=== PATIENT | male | born 1965 | race Caucasian/White ===

== ENCOUNTER 2025-04-06 14:18 | Emergency (ER) | payer OTHER, SELFPAY ==
[2025-04-06 14:20] VITALS: BP 117/84
[2025-04-06] MEDS: TORADOL 15 MG IV (16:32)
[2025-04-06] MEDS: NSS 1000 IV (16:33)
[2025-04-06 16:45] VITALS: BP 122/74
[2025-04-06 16:54] LABS: % Basophils 0.5 % (0-2); % Eosinophils 1.3 % (0-6); % Immature Granulocytes 0.4 % (0-0.5); % Lymphocytes 21.8 % (20.5-51.1); % Monocytes 12.9 % (1.7-9.3); % Neutrophils 63.1 % (42.2-75.2); Absolute Eosinophils 0.1 10^3/uL (0-0.7); Absolute Lymphocytes 1.2 10^3/uL (1.2-3.4); Absolute Monocytes 0.7 10^3/uL (0.1-0.6); Absolute Neutrophils 3.5 10^3/uL (1.4-6.5); Hematocrit 39.6 % (39.0-52.0); Hemoglobin 13.8 g/dL (13.0-18.0); Mean Corp Hgb Conc. 34.8 g/dL (33.0-37.0); Mean Corpuscular Hgb 30.1 pg (27.0-31.0); Mean Corpuscular Volume 86.3 fL (80.0-94.0); Mean Platelet Volume 8.8 fL (7.4-10.4); Nucleated Red Blood Cells % 0 % (-); Platelet Count 207 10^3/uL (130-400); Red Blood Cell Count 4.59 10^6/uL (4.70-6.10); Red Cell Dist. Width 12.4 % (11.5-14.5); White Blood Cell Count 5.5 10^3/uL (4.8-10.8)
[2025-04-06 17:03] LABS: Urine Albumin 1+ (Neg - Trace); Urine Bilirubin Negative (Negative); Urine Character Clear (Clear); Urine Color Yellow; Urine Glucose Negative (Negative); Urine Ketone Negative (Negative); Urine Leukocyte Negative (Negative); Urine Nitrite Positive (Negative); Urine Occult Blood Negative (Negative); Urine Specific Gravity 1.025 (<1.030); Urine Urobilinogen 1+ (Neg - 1+)
[2025-04-06 17:03] LABS: Lactic Acid 0.9 mmol/L (0.7-2.0)
[2025-04-06 17:04] LABS: ALT (SGPT) 28 U/L (0-50); AST (SGOT) 29 U/L (17-59); Albumin 4.5 g/dl (3.5-5.0); Alkaline Phosphatase 43 U/L (38-126); Blood Urea Nitrogen 27 mg/dl (9-20); Calcium 9.6 mg/dl (8.4-10.2); Carbon Dioxide 25 mmol/L (22-30); Chloride 105 mmol/L (98-107); Glucose 103 mg/dl (70-99); Potassium 4.3 mmol/L (3.5-5.1); Sodium 137 mmol/L (135-145); Total Bilirubin 0.7 mg/dl (0.2-1.3); Total Protein 7.3 g/dl (6.3-8.2); eGFR > 60.00
[2025-04-06 17:12] LABS: Urine Bacteria Many (Negative); Urine Hyaline Cast >15 /LPF (0-2); Urine Red Blood Cell 0-2 /HPF (0-2); Urine Squamous Cell 0-2 /LPF (Few); Urine White Cell 0-2 /HPF (0-5)
[2025-04-06 19:13] VITALS: BP 120/72
--- NOTE | 2025-04-06 19:15 | ED.GENMED ---
History of Present Illness
General
Chief Complaint: Abdominal Pain
Source: patient
Exam Limitations: none
Time Seen by Provider: 04/06/25 15:07
Nursing documentation reviewed up to this point in time: agreed with
History of Present Illness
History of Present Illness:
The patient is a 59-year-old male presenting with lower abdominal pain and urinary symptoms that began on Wednesday. 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
urine stream and incomplete bladder emptying. The following morning, he reported this to his spouse and continued to experience symptoms while at work. He visited an urgent care clinic where a pelvic examination caused significant tenderness. He was
prescribed ciprofloxacin 500 mg, but after three doses, there was no improvement in symptoms. Notably, the urine culture performed was negative. Additionally, the patient mentioned taking an [id number] medication, phenazopyridine, for urinary
discomfort, which resulted in discolored urine.
Past History
Past History
ED Past Medical History: Hypercholesterolemia
ED Past Surgical History: None
Social History
Tobacco: Non-smoker
Alcohol: None
Personal:
Living: with family
Review of Systems
Review of Systems
Allergies reviewed?: Yes
All Other Systems: ROS reviewed and negative except as documented in HPI and ROS
Phy Exam
Physical Exam
Physical Exam:
GENERAL: Alert , in no apparent distress
EYE: pupils equal and reactive
NECK: Supple, no significant adenopathy.
ENT: o/p clr, mmm.
CARDIAC: Regular rate and rhythm .
LUNGS: Clear breath sounds bilaterally, no acute respiratory distress, no wheezes/rales/rhonchi
ABDOMEN: Vague discomfort to the lower abdomen maximum to the left lower quadrant.
NEUROLOGICAL: Alert and oriented, no focal neuro deficits
SKIN: Warm and dry, skin intact.
MUSCULOSKELETAL: No edema, well perfused.
PSYCH: Normal and appropriate interaction.
Course
Orders/Labs/Results
Orders:
Orders
04/06/25 16:24
CT Abd/Pel (IV only)-DH only Urgent
Comment:
Reason For Exam: lower abd pain
0.9% Sodium Chloride 1000 ml [Nss] 1,000 ml IV BOLUS
Ketorolac [Toradol] 15 mg IV NOW STA
04/06/25 16:33
Complete Blood Count/With Diff Urgent
Comprehensive Metabolic Panel Urgent
Lactic Acid Urgent
04/06/25 16:34
Urinalysis Reflex To Culture Urgent
Date Specimen was Collected: 04/06/25
Time Specimen was Collected: 16:30
Urine Microscopic Reflex Cult Urgent
Urine Culture Urgent
LURDES Source: U
Specimen Description:
Date Specimen was Collected: 04/06/25
Time Specimen was Collected: 16:30
04/06/25 19:11
Amoxicillin 875 mg/Clav 125 mg [Augmentin 875 mg/125 mg] 1 tablet PO NOW STA
Abnormal Lab Results
04/06/25 04/06/25
16:33 16:34
RBC 4.59 L 10^6/uL
(4.70-6.10)
Absolute Monos (auto) 0.7 H 10^3/uL
(0.1-0.6)
Monocytes % 12.9 H %
(1.7-9.3)
BUN 27 H mg/dl
(9-20)
Glucose 103 H mg/dl
(70-99)
Urine Nitrite (Reflex) Positive A
(Negative)
Urine Bacteria (Reflex) Many A
(Negative)
Urine Albumin (Reflex) 1+ A
(Neg - Trace)
04/06/25 16:33
04/06/25 16:33
Vital Signs
Initial and Last Documented VS:
Initial Vital Signs
Temp Pulse Resp BP Pulse Ox
97.9 F 112 16 117/84 99
04/06/25 14:20 04/06/25 14:20 04/06/25 14:20 04/06/25 14:20 04/06/25 14:20
Last Documented Vital Signs
Temp Pulse Resp BP Pulse Ox
97.9 F 90 18 120/72 99
04/06/25 14:20 04/06/25 19:13 04/06/25 19:13 04/06/25 19:13 04/06/25 19:13
MDM/Problems Addressed
MDM/Problems Addressed:
59-year-old male presenting to the emergency department today with concerns of lower abdominal discomfort over the past few days. Diagnosed with potential UTI started on Cipro but his urinalysis did not show any infection on culture concerning the
persisting pain and reproducible pain to palpation CT scan was obtained diverticulitis. He was started on Augmentin and advised for dietary modification otherwise was advised for close follow-up with his urologist as well as GI doctor. Return
precautions given. Incidental findings of BPH and additional findings were discussed with the patient. He was given a copy of the CT scan.
*Pulse Oximetry
SaO2: 99
Oxygen Mode of Delivery: Room air
*Critical Care Note
Total Time (30-74mins, 75-104mins- exclusive of procedures): Not Applicable
ED Attending Note
-
Portions of this chart may have been created with voice recognition software.� Occasional wrong word or��sound alike� substitutions may have occurred due to the inherent limitations of voice recognition software.
Discharge Plan
Departure
Patient Disposition: Home (Routine Discharge)
Date of Disposition: 04/06/25
Time of Disposition: 19:21
Patient with high blood pressure during this ER visit?: No
Condition: Good
Covid-19: Not Applicable
Discharge Problem:
Diverticulitis
Instructions: Diverticulitis (DC)
Prescriptions:
New
amoxicillin-pot clavulanate 875-125 mg tablet
1 tab PO BID 7 Days Qty: 14 0RF
No Action
Crestor:
10 mg PO DAILY
Metoprolol
50 mg PO DAILY
valsartan-hydrochlorothiazide 1 EACH tablet
1 ea PO DAILY
fenofibrate 54 MG tablet
54 mg PO DAILY
Patient Comments:
DOSE clarification NEEDED!
ranitidine HCl [Zantac] 150 MG tablet
150 mg PO BID
sucralfate 1 GM/10 ML suspension
1 gm PO ACHS Qty: 20 0RF
Referrals:
Nicholas Fuller MD [Family Provider, Family Practice]
Activity Restrictions/Additional Instructions:
You came to the emergency department today with concerns of lower abdominal pain. You are found to have diverticulitis. Please take the prescribed antibiotic and follow-up closely as an outpatient. Return for any worsening, new or concerning
symptoms.
Interventions
Interventions:
*Risk Screen - Suicide Last Done: 04/06/25 14:20
*General Assessment Last Done: 04/06/25 14:41
*Neglect/Abuse Screening Last Done: 04/06/25 14:20
ZR-Yhgbdb-Jdbtpjkuxd Assessment Last Done: 04/06/25 14:41
Discharge Date and Time
Print Language: [place]
[2025-04-06] MEDS: AUGMENTIN 875 MG/125 MG 1 TABLET PO (19:37)
== END 2025-04-06 20:58 | disposition home or self-care (01) ==
LOC: EMR 14:18
PROVIDERS: Physician Assistant; EMERGENCY PHYSICIAN Student in an Organized Health Care Education/Training Program; FAMILY PHYSICIAN Family Medicine
DX: K57.32 Diverticulitis of large intestine without perforation or abscess without bleeding (principal)
CPT/HCPCS: 99285; 96374; 96361; 74177; 80053; 81003; 81015; 83605; 85025; 87086; Q9967